=== PATIENT | female | born 1955 | race Caucasian/White ===

== ENCOUNTER 2024-02-24 19:26 | Inpatient (IN) | payer MEDICARE, OTHER ==
[2024-02-24] MEDS ORDERED: fentaNYL 50 mcg/mL 1 mL Vial ONE ×2 (19:32→19:44)
[2024-02-24 19:50] LABS: #Basophils 0.04 10x3/uL (0.0-0.2); %Basophils 0.4 % (0.0-1.0); %Lymphocytes 24.1 % (21.0-51.0); %Monocytes 6.9 % (0.0-10.0); %Neutrophils 67.2 % (42.0-75.0); Hematocrit 34.1 % (36.0-47.0); Hemoglobin 11.3 g/dL (12.0-16.0); Mean Corpuscular HGB CONC 33.1 g/dL (32.0-36.0); Mean Corpuscular Volume 96.6 fL (78.0-98.0); Mean Platelet Volume 12.3 fL (7.4-10.4); Platelet Count 179 10x3/uL (130-400); RBC Distribution Width 12.4 % (11.5-14.5); Red Blood Cell (RBC) Count 3.53 mill/uL (4.20-5.40)
[2024-02-24 20:00] LABS: ALT (SGPT) 17 U/L (8-55); AST (SGOT) 25 U/L (5-34); Albumin 3.5 g/dL (3.4-4.8); Alkaline Phosphatase 41 U/L (40-110); Anion Gap 12 mmol/L (10-20); BUN (Urea Nitrogen) 16 mg/dL (9.8-20.1); Bilirubin, Total 0.3 mg/dL (0.2-1.2); Calc. Creatinine Clearance 0 mL/min (70-130); Calcium 8.2 mg/dL (7.8-10.44); Carbon Dioxide 22 mmol/L (23-31); Chloride 109 mmol/L (98-107); Estimated GFR 81; Globulin 2.6 g/dL (2.4-3.5); Glucose 88 mg/dL (80-115); Potassium 3.9 mmol/L (3.5-5.1); Protein, Total 6.1 g/dL (5.8-8.1); Sodium 139 mmol/L (136-145)
[2024-02-24 20:04] LABS: INR-International Normal Ratio 1.1; PTT 26.5 sec (22.9-36.1); Prothrombin Time 14.3 sec (12.0-14.7)
[2024-02-24] MEDS ORDERED: traMADol HCl 50 MG TAB PO PRN (20:24)
[2024-02-24] MEDS ORDERED: Ketorolac Tromethamine 30 MG (1 mL) VIAL ONE (21:01)
[2024-02-24] MEDS: Morphine 2 MG/ML VIAL SLOW IVP PRN (23:17)
[2024-02-24 23:50] VITALS: BMI 21.9
[2024-02-25] MEDS: Sodium Chloride 0.9% 1,000 ML IV SCH (00:16)
[2024-02-25] MEDS: Cyclobenzaprine 10 MG TAB PO SCH (03:44)
[2024-02-25 04:18] LABS: #Basophils 0.04 10x3/uL (0.0-0.2); %Basophils 0.4 % (0.0-1.0); %Eosinophils 0.7 % (0.0-10.0); %Lymphocytes 25.3 % (21.0-51.0); %Monocytes 8.5 % (0.0-10.0); %Neutrophils 64.9 % (42.0-75.0); Hematocrit 33.4 % (36.0-47.0); Hemoglobin 10.8 g/dL (12.0-16.0); Mean Corpuscular HGB CONC 32.3 g/dL (32.0-36.0); Mean Corpuscular Hemoglobin 31.9 pg (27.0-31.0); Mean Corpuscular Volume 98.5 fL (78.0-98.0); Mean Platelet Volume 12.6 fL (7.4-10.4); Platelet Count 154 10x3/uL (130-400); RBC Distribution Width 12.2 % (11.5-14.5); Red Blood Cell (RBC) Count 3.39 mill/uL (4.20-5.40)
[2024-02-25 04:39] LABS: Anion Gap 10 mmol/L (10-20); BUN (Urea Nitrogen) 11 mg/dL (9.8-20.1); Calc. Creatinine Clearance 73 mL/min (70-130); Calcium 7.9 mg/dL (7.8-10.44); Carbon Dioxide 23 mmol/L (23-31); Chloride 112 mmol/L (98-107); Estimated GFR 95; Glucose 99 mg/dL (80-115); Potassium 4.1 mmol/L (3.5-5.1); Sodium 141 mmol/L (136-145)
[2024-02-25] MEDS ORDERED: Cyclobenzaprine 10 MG TAB PO PRN (06:56)
[2024-02-25] MEDS: Ketorolac Tromethamine 30 MG (1 mL) VIAL IVP SCH ×2 (08:09→13:54)
[2024-02-25] MEDS: Senokot S 8.6-50 MG TAB PO SCH (08:10)
[2024-02-25] MEDS: Acetaminophen 325 MG TAB PO SCH (08:10)
[2024-02-25] MEDS: Polyethylene Glycol 3350 17 GM Packet PO SCH (08:10)
[2024-02-25] MEDS ORDERED: CEFAZOLIN 2 GM in Sodium Chloride 0.9% 100 ML IVPB SCH (09:15)
[2024-02-25] MEDS ORDERED: Sevoflurane 250 ML INH ANEST BOTTLE ONE (10:04)
[2024-02-25] MEDS ORDERED: fentaNYL PF 100 MCG/2 ML SYRINGE ONE (10:11)
[2024-02-25] MEDS ORDERED: PROPOFOL 20 ML ONE (10:11)
[2024-02-25] MEDS ORDERED: Lidocaine 1% PF 5 ML VIAL ONE (10:12)
[2024-02-25] MEDS ORDERED: Rocuronium Bromide 10 MG/ML (10ML VIAL) ONE (10:12)
[2024-02-25] MEDS ORDERED: PHENYLEPHRINE-NS 100 MCG/ML 10 ML SYRINGE ONE (10:51)
[2024-02-25] MEDS ORDERED: CEFAZOLIN 1 GM VIAL ONE (10:56)
[2024-02-25] MEDS ORDERED: Ondansetron PF 4 MG/2 ML Vial ONE (11:11)
[2024-02-25] MEDS ORDERED: Ketorolac Tromethamine 30 MG (1 mL) VIAL ONE (11:11)
[2024-02-25] MEDS ORDERED: Dexamethasone 20 MG/5 ML VIAL ONE (11:11)
[2024-02-25] MEDS ORDERED: Ondansetron HCl/PF 4 MG/2 ML Vial IVP PRN ×2 (11:46→11:47)
[2024-02-25] MEDS ORDERED: Promethazine HCl 25 MG/ML VIAL IM PRN ×2 (11:46→11:47)
[2024-02-25] MEDS ORDERED: Morphine Sulfate 2 MG/ML SYRINGE SLOW IVP PRN (11:47)
[2024-02-25] MEDS ORDERED: PACU-Morphine 4MG/ML VIAL SLOW IVP PRN (11:47)
[2024-02-25] MEDS ORDERED: HYDROmorphone 2 MG/ML VIAL SLOW IVP PRN (11:47)
[2024-02-25] MEDS ORDERED: Glycopyrrolate 0.2 MG/ML 5 ML SYRINGE ONE (11:53)
[2024-02-25] MEDS ORDERED: NEOSTIGMINE 3 MG/3 ML SYR 3 MG/3 ML SYRINGE ONE (11:53)
[2024-02-25] MEDS ORDERED: fentaNYL 50 mcg/mL 1 mL Vial ONE (12:23)
[2024-02-25] MEDS: traMADol HCl 50 MG TAB PO SCH (13:15)
[2024-02-25] MEDS: traMADol HCl 50 MG TAB PO PRN (15:12)
[2024-02-26] MEDS: LEVOTHYROXINE 75 MCG PO SCH (05:13)
[2024-02-26 05:42] LABS: #Basophils 0.03 10x3/uL (0.0-0.2); #Eosinphils Less than 0.03 10x3/uL (0.0-0.7); %Basophils 0.2 % (0.0-1.0); %Eosinophils 0.1 % (0.0-10.0); %Lymphocytes 12.2 % (21.0-51.0); %Monocytes 6.2 % (0.0-10.0); %Neutrophils 80.9 % (42.0-75.0); Hematocrit 25.6 % (36.0-47.0); Hemoglobin 8.4 g/dL (12.0-16.0); Mean Corpuscular HGB CONC 32.8 g/dL (32.0-36.0); Mean Corpuscular Hemoglobin 31.1 pg (27.0-31.0); Mean Corpuscular Volume 94.8 fL (78.0-98.0); Mean Platelet Volume 12.5 fL (7.4-10.4); Platelet Count 134 10x3/uL (130-400); RBC Distribution Width 12.4 % (11.5-14.5)
[2024-02-26] MEDS: Ascorbic Acid 500 mg Chewable Tablet PO SCH (09:36)
[2024-02-26] MEDS: Ferrous Sulfate 325 MG TAB PO SCH (09:36)
[2024-02-26] MEDS: Sodium Chloride 0.9% 1,000 ML IV SCH (11:02)
[2024-02-26] MEDS: Hydrocortisone Sod Succ/PF 100 mg/2 ml Vial IVP SCH ×2 (13:25→21:35)
[2024-02-26] MEDS: Raloxifene 60 MG TAB PO SCH (20:21)
[2024-02-26] MEDS: Melatonin 3 MG TAB PO SCH (21:34)
[2024-02-27] MEDS: Levothyroxine Sodium 75 MCG TAB PO SCH (05:45)
[2024-02-27 07:02] LABS: #Basophils Less than 0.03 10x3/uL (0.0-0.2); %Basophils 0.2 % (0.0-1.0); %Eosinophils 0.7 % (0.0-10.0); %Lymphocytes 17.8 % (21.0-51.0); %Monocytes 6.2 % (0.0-10.0); %Neutrophils 74.8 % (42.0-75.0); Hematocrit 23.4 % (36.0-47.0); Hemoglobin 7.8 g/dL (12.0-16.0); Mean Corpuscular HGB CONC 33.3 g/dL (32.0-36.0); Mean Corpuscular Hemoglobin 31.5 pg (27.0-31.0); Mean Corpuscular Volume 94.4 fL (78.0-98.0); Mean Platelet Volume 12.8 fL (7.4-10.4); Platelet Count 125 10x3/uL (130-400); RBC Distribution Width 12.4 % (11.5-14.5); Red Blood Cell (RBC) Count 2.48 mill/uL (4.20-5.40)
[2024-02-27] MEDS: Aspirin 81 mg Enteric Coated Tablet PO SCH (10:16)
[2024-02-27] MEDS: Dexamethasone 4 mg/ml Vial SLOW IVP SCH (12:13)
[2024-02-27] MEDS ORDERED: Hydrocortisone Sod Succ/PF 100 mg/2 ml Vial IVP SCH (14:00)
[2024-02-28] MEDS: Cosyntropin 250 MCG VIAL SLOW IVP SCH (09:03)
[2024-02-29] MEDS ORDERED: Hydrocortisone 10 mg Tablet PO SCH (09:45)
[2024-02-29] MEDS: Hydrocortisone 10 mg Tablet PO SCH ×2 (11:32→12:10)
[2024-02-29] MEDS: Methocarbamol 500 MG TAB PO SCH (21:24)
[2024-03-01 05:15] VITALS: TEMP 98.2
[2024-03-01] MEDS ORDERED: Hydrocortisone 10 mg Tablet PO SCH (07:30)
[2024-03-01 07:54] VITALS: BP 101/63
== END 2024-03-01 16:15 | disposition home or self-care (01) | DRG 481 ==
LOC: ERS 19:26 → CCU 19:55 → SJJU 22:53
PROVIDERS: ADMIT Surgery; ATTEND Surgery
PROC: 0QS606Z Reposition Right Upper Femur with Intramedullary Internal Fixation Device, Open Approach (ICD-10-PCS; principal; 2024-02-25)
DX: S72.21XA Displaced subtrochanteric fracture of right femur, initial encounter for closed fracture (principal); E27.40 Unspecified adrenocortical insufficiency; W18.30XA Fall on same level, unspecified, initial encounter; Z79.899 Other long term (current) drug therapy; Z88.8 Allergy status to other drugs, medicaments and biological substances; I95.9 Hypotension, unspecified; D64.9 Anemia, unspecified
CPT/HCPCS: 36415; 36416; 71045; 80048; 80053; 80400; 82533; 85025; 85610; 85730; 86850; 86900; 86901; 93005; 94760; 96374; 96375; C1713; J0690; J0834; J1100; J1720; J1885; J2272; J2405; J2704; J3010; J7050